=== PATIENT | male | born 1960 | race Caucasian/White ===

== ENCOUNTER 2017-09-03 11:42 | Emergency (ER) | payer OTHER ==
[~2017-09-03] VITALS: Ht 177.8 cm; Wt 68.2 kg
[2017-09-03 11:45] VITALS: Ht 177.8 cm; Wt 68.2 kg
--- NOTE | 2017-09-03 13:06 | DIAGNOSTIC IMAGING REPORT ---
HEAD WITHOUT CONTRAST (CT) CLINICAL HISTORY: 57 years-old Male presenting with fall, head trauma, unknown loss of consciousness, EtOH. TECHNIQUE: Multidetector CT imaging of the head was performed without the use of intravenous contrast. IV contrast: None. A dose lowering technique was used consistent with the principles of ALARA (as low as reasonably achievable). COMPARISON: None. CT DOSE (mGy.cm): The estimated cumulative dose is 1139.34. FINDINGS: Relay Man topogram: Unremarkable. Ventricles and sulci normal in size. Brain parenchyma normal in appearance with preserved jacobsen-white differentiation. No mass effect or midline shift. No hemorrhage or acute territorial infarct. No extra-axial fluid collection. Paranasal sinuses and mastoid air cells clear. Calvarium intact. IMPRESSION: 1. No acute intracranial abnormality. Electronically signed by: Radhames Mccall M.D. 09/03/2017 1:05 PM Dictated Date/Time: 09/03/2017 1:03 PM
--- NOTE | 2017-09-03 13:09 | DIAGNOSTIC IMAGING REPORT ---
CT OF THE CERVICAL SPINE CLINICAL HISTORY: Neck pain status post trauma COMPARISON STUDY: No previous studies for comparison. CT DOSE: 1139.34 mGy.cm TECHNIQUE: CT scan of the cervical spine was performed from the skull base to the thoracic inlet. Images are reviewed in the axial, sagittal, and coronal planes. IV contrast was not administered for this examination. A dose lowering technique was utilized adhering to the principles of ALARA. FINDINGS: The visualized portions of the lung apices reveal no evidence of pneumothorax. There is a 14 mm right apical bleb The prevertebral soft tissues are normal. No fractures or subluxations are visualized. There is a nonspecific 7 mm lytic focus within the left C1 lamina There are multilevel degenerative changes. There is a spinal curvature convex to the left. There is chronic fragmentation of the right sternoclavicular joint. IMPRESSION: No evidence of acute fracture or traumatic subluxation. Electronically signed by: Nikos Sewell M.D. 09/03/2017 1:07 PM Dictated Date/Time: 09/03/2017 1:03 PM
[2017-09-03 13:19] LABS: CALCIUM 8.8 mg/dl (8.5-10.1); CREATININE 0.69 mg/dl (0.60-1.40); POTASSIUM 4.3 mmol/L (3.5-5.1)
[2017-09-03 13:38] LABS: BASO % 1.5 %; BASO ABS # 0.09 K/uL (0-0.2); EOS % 0.5 %; EOS ABS # 0.03 K/uL (0-0.5); HEMATOCRIT 48.4 % (42-52); HEMOGLOBIN 16.4 g/dL (14.0-18.0); IG# 0.01 K/uL (0.00-0.02); LYMPH % 24.5 %; LYMPH ABS # 1.47 K/uL (1.2-3.4); MEAN CORPUSCULAR HEMOGLOBIN 34.2 pg (25-34); MEAN CORPUSCULAR HGB CONC 33.9 g/dl (32-36); MEAN PLATELET VOLUME 9.1 fL (7.4-10.4); MONO % 9.2 %; MONO ABS # 0.55 K/uL (0.11-0.59); NEUT % 64.1 %; NEUT ABS # 3.84 K/uL (1.4-6.5); PLATELET COUNT 343 K/uL (130-400); RED CELL DISTRIBUTION WIDTH CV 13.3 % (11.5-14.5); RED CELL DISTRIBUTION WIDTH SD 49.2 fL (36.4-46.3); WHITE BLOOD COUNT 5.99 K/uL (4.8-10.8)
[2017-09-03 13:42] VITALS: BP 124/86
[2017-09-03 13:52] LABS: ALBUMIN 4.4 gm/dl (3.4-5.0); TOTAL PROTEIN 8.8 gm/dl (6.4-8.2)
--- NOTE | 2017-09-03 14:30 | EMERGENCY ROOM VISIT NOTE ---
History Report prepared by [facility]: Beth Cheek Under the Supervision of: Dr. Marlon Agarwal D.O. First contact with patient: 12:16 Chief Complaint: ALCOHOL OVERDOSE Stated Complaint: ETOH Nursing Triage Summary: Patient arrived via BLS with [place] police. Patient was foudn stumbling downtown between [place] and [facility]. Bystanders saw patient fall and hit head. Unknown LOC. Patient states he was drinking vodka, unknown amount. Patient carrying backpack with 2 full fifths of vodka. History of Present Illness The patient is a 57 year old male who presents to the Emergency Room with complaints of a persistent alcohol overdose, which began about 2 hours prior to arrival. The patient states that he was [place], noting that he fell a couple of times and hit his head. He notes that the police observed him fall and questioned if he was drinking, which he admitted to. The patient reports that he began drinking 2 hours prior to arrival, noting he had "some gulps of vodka". He notes that he usually only drinks occasionally and not in high amounts. The patient states that he sometimes smokes cigars. He denies any suicidal thoughts or depression. HPI limited due to alcohol intoxication. Review of Systems See HPI for pertinent positives & negatives. A total of 10 systems reviewed and were otherwise negative. Family History No significant family history Social History Smoking Status: Current Some Day Smoker Alcohol Use: heavy Marital Status: Housing Status: lives with significant other () Occupation Status: employed Current/Historical Medications No Active Prescriptions or Reported Meds Allergies Coded Allergies: No Known Allergies (Unverified , 09/03/17) Physical Exam Vital Signs Date Time Temp Pulse Resp B/P (MAP) Pulse Ox O2 Delivery O2 Flow Rate FiO2 09/03/17 15:39 92 16 98 09/03/17 13:42 94 18 124/86 98 Room Air 09/03/17 11:45 100 18 171/104 97 Room Air Physical Exam GENERAL: Patient is awake, alert, walking around the room and appears in no acute distress. No significant sins of trauma noted. Patient is resting comfortably and showing no signs of anxiety EYES: The conjunctivae are clear. The pupils are round and reactive. EARS, NOSE, MOUTH AND THROAT: The nose is without any evidence of any deformity. Mucous membranes are moist tongue is midline NECK: The neck is nontender and supple. RESPIRATORY: Normal respiratory effort is noted there is no evidence of wheezing rhonchi or rales CARDIOVASCULAR: Regular rate and rhythm noted there no murmurs rubs or gallops normal S1 normal S2 GASTROINTESTINAL: The abdomen is soft. Bowel sounds are present in all quadrants. Abdomen is nontender MUSCULOSKELETAL/EXTREMITIES: There is no evidence of gross deformity full range of motion is noted in the hips and shoulders SKIN: There is no obvious evidence of any rash. There are no petechiae, pallor or cyanosis noted. NEUROLOGIC: Patient appears minimally intoxicated but is awake, alert, and oriented x3, gate was steady, and patellar reflux 2+ bilaterally. PSYCH: Patient currently denies suicidal homicidal ideations. Medical Decision & Procedures Laboratory Results 09/03/17 12:44 Red Blood Count 4.79, Mean Corpuscular Volume 101.0, Mean Corpuscular Hemoglobin 34.2, Mean Corpuscular Hemoglobin Concent 33.9, Mean Platelet Volume 9.1, Neutrophils (%) (Auto) 64.1, Lymphocytes (%) (Auto) 24.5, Monocytes (%) ( Auto) 9.2, Eosinophils (%) (Auto) 0.5, Basophils (%) (Auto) 1.5, Neutrophils # ( Auto) 3.84, Lymphocytes # (Auto) 1.47, Monocytes # (Auto) 0.55, Eosinophils # ( Auto) 0.03, Basophils # (Auto) 0.09 09/03/17 12:43 Test 09/03/17 12:43 09/03/17 12:44 09/03/17 13:23 Anion Gap 4.0 mmol/L (3-11) Est Creatinine Clear Calc Drug Dose 112.6 ml/min Estimated GFR () 121.3 Estimated GFR (Non- 104.6 BUN/Creatinine Ratio 11.0 (10-20) Calcium Level 8.8 mg/dl (8.5-10.1) Total Bilirubin 0.4 mg/dl (0.2-1) Direct Bilirubin 0.1 mg/dl (0-0.2) Aspartate Amino Transf (AST/SGOT) 89 U/L (15-37) Alanine Aminotransferase (ALT/SGPT) 82 U/L (12-78) Alkaline Phosphatase 67 U/L (45-117) Total Protein 8.8 gm/dl (6.4-8.2) Albumin 4.4 gm/dl (3.4-5.0) White Blood Count 5.99 K/uL (4.8-10.8) Red Blood Count 4.79 M/uL (4.7-6.1) Hemoglobin 16.4 g/dL (14.0-18.0) Hematocrit 48.4 % (42-52) Mean Corpuscular Volume 101.0 fL (80-100) Mean Corpuscular Hemoglobin 34.2 pg (25-34) Mean Corpuscular Hemoglobin Concent 33.9 g/dl (32-36) Platelet Count 343 K/uL (130-400) Mean Platelet Volume 9.1 fL (7.4-10.4) Neutrophils (%) (Auto) 64.1 % Lymphocytes (%) (Auto) 24.5 % Monocytes (%) (Auto) 9.2 % Eosinophils (%) (Auto) 0.5 % Basophils (%) (Auto) 1.5 % Neutrophils # (Auto) 3.84 K/uL (1.4-6.5) Lymphocytes # (Auto) 1.47 K/uL (1.2-3.4) Monocytes # (Auto) 0.55 K/uL (0.11-0.59) Eosinophils # (Auto) 0.03 K/uL (0-0.5) Basophils # (Auto) 0.09 K/uL (0-0.2) RDW Standard Deviation 49.2 fL (36.4-46.3) RDW Coefficient of Variation 13.3 % (11.5-14.5) Immature Granulocyte % (Auto) 0.2 % Immature Granulocyte # (Auto) 0.01 K/uL (0.00-0.02) Ethyl Alcohol mg/dL 321.0 mg/dl (0-3) Urine Color YELLOW Urine Appearance CLEAR (CLEAR) Urine pH 5.0 (4.5-7.5) Urine Specific [place] 1.004 (1.000-1.030) Urine Protein NEG (NEG) Urine Glucose (UA) NEG (NEG) Urine Ketones NEG (NEG) Urine Occult Blood NEG (NEG) Urine Nitrite NEG (NEG) Urine Bilirubin NEG (NEG) Urine Urobilinogen NEG (NEG) Urine Leukocyte Esterase NEG (NEG) Urine Opiates Screen NEG (NEG) Urine Methadone, Qualitative NEG (NEG) Urine Barbiturates NEG (NEG) Urine Phencyclidine (PCP) Level NEG (NEG) Ur Amphetamine/Methamphetamine NEG (NEG) MDMA (Ecstasy) Screen NEG (NEG) Urine Benzodiazepines Screen NEG (NEG) Urine Cocaine Metabolite NEG (NEG) Urine Marijuana (THC) NEG (NEG) Laboratory results per my review. ED Course 1235: The patient was evaluated in room A7. A complete history and physical examination were performed. 1345: We are contacting the patient's to see if she can pick him up. 1509: Upon reevaluation, the patient is resting comfortably. I discussed the results and treatment plan with him. He verbalized agreement of the treatment plan. The patient will be discharged home when his shows up to pick him up. Medical Decision Additional history obtained from police reports. Differential diagnosis: Etiologies such as alcohol intoxication, toxicologic, infection, hypoglycemia, electrolyte abnormalities, cardiac sources, intracerebral event, neurologic, as well as others were entertained. The patient is a 57-year-old male who presented to the emergency department for an evaluation of alcohol intoxication. The patient fell and was noted to be having difficulty ambulating by the police. The patient was brought to the emergency department by a prehospital. The patient was reevaluated multiple times. I discussed patient's laboratory results with him. He has no depression or suicidal ideation. He was no longer clinically intoxicated on final reevaluation. He was encouraged to continue all medications as prescribed. He was also encouraged to avoid any further alcoholic beverages. He is also encouraged to avoid operating any heavy machinery including driving a vehicle for the next 24 hours. Medication Reconcilliation Current Medication List: was personally reviewed by me Blood Pressure Screening Patient's blood pressure: Normal blood pressure Blood pressure disposition: Did not require urgent referral Impression Primary Impression: Alcohol intoxication Additional Impression: Head injury Scribe Attestation The scribe's documentation has been prepared under my direction and personally reviewed by me in its entirety. I confirm that the note above accurately reflects all work, treatment, procedures, and medical decision making performed by me. Departure Information Dispostion Home / Self-Care Prescriptions No Active Prescriptions or Reported Meds Referrals Lonny Carlisle III, M.D. (PCP) Forms HOME CARE DOCUMENTATION FORM, IMPORTANT VISIT INFORMATION Patient Instructions My [facility] Additional Instructions Continue all medications as prescribed. Drink plenty of clear liquids. Avoid operating any heavy machinery including driving a vehicle for the next 24 hours. Do not drink any further alcoholic beverages for the next 24 hours. Return to the emergency department immediately if symptoms change or worsen or the need arises. Problem Qualifiers Primary Impression: Alcohol intoxication Complication of substance-induced condition: uncomplicated Qualified Codes: F10.920 - Alcohol use, unspecified with intoxication, uncomplicated Additional Impression: Head injury Encounter type: initial encounter Qualified Codes: S09.90XA - Unspecified injury of head, initial encounter
[2017-09-03 15:39] VITALS: PULSE 92; O2SAT 98
== END 2017-09-03 15:40 | disposition home or self-care (01) ==
LOC: EDBD 11:42 → C.EDA 11:44
DX: F10.920 Alcohol use, unspecified with intoxication, uncomplicated (principal); S09.90XA Unspecified injury of head, initial encounter; W19.XXXA Unspecified fall, initial encounter; Y93.01 Activity, walking, marching and hiking; Y92.414 Local residential or business street as the place of occurrence of the external cause; F17.290 Nicotine dependence, other tobacco product, uncomplicated